=== PATIENT | male | born 2000 | race Hispanic/Latino ===

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

== ENCOUNTER 2023-09-08 06:12 | Emergency (ER) | payer BC ==
[2023-09-08] MEDS ORDERED: Lidocaine 2% Viscous 100 ML BOTTLE ONE (06:28)
== END 2023-09-08 07:00 | disposition home or self-care (01) ==
LOC: NAV ERS 06:12
DX: T16.1XXA Foreign body in right ear, initial encounter (principal); F17.290 Nicotine dependence, other tobacco product, uncomplicated; X58.XXXA Exposure to other specified factors, initial encounter
CPT/HCPCS: 69200; 99282